=== PATIENT | female | born 1965 | race Caucasian/White ===

== ENCOUNTER 2017-01-20 06:42 | Day surgery (SDC) | payer OTHER ==
[~2017-01-20] VITALS: Ht 162.6 cm; Wt 70.9 kg
[2017-01-20] MEDS ORDERED: OMEP20CA16 PO (07:23)
--- NOTE | 2017-01-20 08:33 | OPPN ---
Date/Time of Note Date/Time of Note DATE: 01/20/17 TIME: 08:31 Operative Report Preoperative Diagnosis Chronic heartburn Screening colonoscopy Postoperative Diagnosis Hiatal hernia Reflux esophagitis Gastritis with erosions Sigmoid polyp was removed Internal hemorrhoids Operation/Procedure Performed Esophagogastroduodenoscopy and biopsy Colonoscopy and polypectomy Surgeon see signature line family and divorce legal assistant None Anesthesia: moderate sedation Estimated blood loss: none Transfusion Required none Specimen Gastric mucosal biopsy Sigmoid polyp Grafts/Implants none Complications none JOSHUA DOMINGO MD Jan 20, 2017 08:33
[2017-01-20] MEDS ORDERED: MIDAZOLAM 1 MG/ML 2 ML INJ ONE ×2 (08:37)
[2017-01-20] MEDS ORDERED: FENTAnyl 50 MCG/ML VIAL ONE (08:37)
[2017-01-20 08:56] VITALS: BP 110/72; RESP 14
--- NOTE | 2017-01-21 04:45 | GILP ---
DATE OF PROCEDURE: NAME OF PROCEDURES: 1. Esophagogastroduodenoscopy and biopsy. 2. Colonoscopy and polypectomy. SURGEON: Joshua nAderson MD PREOPERATIVE DIAGNOSES: 1. Chronic heartburn. 2. Screening colonoscopy. POSTOPERATIVE DIAGNOSES: 1. Hiatal hernia. 2. Reflux esophagitis. 3. Lower esophageal ring. 4. Gastritis with erosions. 5. Gastric mucosal biopsies were taken for Helicobacter pylori test. 6. Colonoscopy all the way to the cecum. 7. Sigmoid polyp was removed using the snare and electrocautery. 8. Internal hemorrhoids. INDICATION FOR THE PROCEDURE: Ms. Axel Miles is a 51-year-old female patient who had chronic heartburn, not responding to therapy. She also needed screening colonoscopy. The procedures and possible complications are well explained to the patient. The patient understood and consented to the procedure. DESCRIPTION OF PROCEDURE: Under the influence of fentanyl and Versed, the gastroscope was carefully introduced into the esophagus and under direct vision, it was advanced to the stomach and through t he pylorus into the duodenal bulb and descending duodenum. FINDINGS: ESOPHAGUS: The patient had hiatal hernia and lower esophageal ring. She had reflux esophagitis. STOMACH: She had gastritis with erosions. Gastric mucosal biopsies were taken for H. pylori test. DUODENUM: Normal. The colonoscope was carefully introduced in the rectum and under direct vision, it was advanced all the way to the cecum. FINDINGS: The patient had a sigmoid colon polyp and it was removed using the snare and electrocaute ry. She had internal hemorrhoids. She tolerated the procedures very well and there was no complication from the procedures. At the en d of the procedures, she was awake with stable vital signs and she was discharged home to the care o f her family. IMPRESSION: Please see postoperative diagnosis. PLAN: 1. Omeprazole 40 mg p.o. q.a.m. 2. Zantac 300 mg p.o. at bedtime. 3. Await histopathology reports. 4. Next screening colonoscopy in 5 years. Dictated By: JOSHUA SPRINGER/GABINO Conf#: [id number] DID#: [id number]
== END 2017-01-20 09:49 | disposition home or self-care (01) ==
LOC: GIL 06:42
PROVIDERS: ATTEND Internal Medicine Gastroenterology
DX: Z12.11 Encounter for screening for malignant neoplasm of colon (principal); K44.9 Diaphragmatic hernia without obstruction or gangrene; K21.0 Gastro-esophageal reflux disease with esophagitis; K29.70 Gastritis, unspecified, without bleeding; D12.5 Benign neoplasm of sigmoid colon; K25.9 Gastric ulcer, unspecified as acute or chronic, without hemorrhage or perforation; K64.8 Other hemorrhoids
CPT/HCPCS: 43239; 45385; 87081; 88305; J2250; J3010; Z7610